=== PATIENT | male | born 1990 | race Caucasian/White ===

== ENCOUNTER 2021-08-26 10:53 | Emergency (ER) | payer OTHER ==
[~2021-08-26 10:53] MED LIST: AMOXICILLIN500 MG PO; BACTROBAN CREAM15 GM TOP; CYCLOBENZAPRINE10 MG PO; PREDNISONE 10 M10 MG PO; TYLENOL 500 MG500 MG PO; VIBRAMYCIN100 MG PO
[2021-08-26 12:11] LABS: HEMOGLOBIN 16.7 gm/dl (14.0-17.5); RED BLOOD COUNT 6.01 M/UL (4.20-5.50)
[2021-08-26 13:11] LABS: BUN/CREATININE RATIO 19 (0-10)
[2021-08-26] MEDS ORDERED: DELSYM30 MG/5 ML PO (13:42)
[2021-08-26] MEDS ORDERED: FLONASE 0.05% N16 GM (13:42)
[2021-08-26] MEDS ORDERED: ZOFRAN4 MG PO (13:42)
== END 2021-08-26 13:50 | disposition home or self-care (01) ==
LOC: ER1 10:53
PROVIDERS: Physician Assistant Medical
DX: J06.9 Acute upper respiratory infection, unspecified (principal); I10 Essential (primary) hypertension; Z79.899 Other long term (current) drug therapy; Z20.822 Contact with and (suspected) exposure to COVID-19
CPT/HCPCS: 80053; 81001; 85025; 96374; 96375; 99284; J1885; J2405; U0002